=== PATIENT | male | born 1985 | race Hispanic/Latino ===

== ENCOUNTER 2024-02-23 18:04 | Observation (INO) | payer SELFPAY ==
--- NOTE | ~2024-02-23 | XR_ITS ---
EXAM: XR abdomen/kub 1V DATE: 02/23/2024 23:29 HISTORY: stone . COMPARISON: CT abdomen pelvis, same date. FINDINGS: Retained contrast in a mild-to moderately dilated right collecting system and within the u rinary bladder. Normal bowel gas pattern. No organomegaly. No abnormal abdominal calcification, howev er retained contrast obscures some radiologic detail including the known distal right ureteral stone. Regional bones and soft tissues normal for age. IMPRESSION: The distal right ureteral stone is obscured by contrast material. Mild-moderate right hyd ronephrosis. Reviewed, dictated and finalized at location K. IMPRESSION: The distal right ureteral stone is obscured by contrast material. M ild-moderate right hydronephrosis.
--- NOTE | ~2024-02-23 | XR_ITS ---
EXAMINATION: XR retrograde pyelo w/stent RT DATE: 02/24/2024 09:58 INDICATION: Right-sided retrograde pyelogram. TECHNIQUE: 3 fluoroscopic images of the pelvis and lower abdomen were obtained during procedure perfo rmed by Dr. Alarcon. Radiologist was not present for the imaging or procedure. The amount of fluoros copy time used during this procedure was 0.2 minutes. COMPARISON: 02/23/2024 FINDINGS: There is retrograde contrast opacification of the right ureter and renal collecting system. The stone previously seen at the right ureterovesicular junction is not identified and as either been extracte d or is obscured by the injected contrast. No evident urothelial irregularities or definitive filling defects appreciated. Final image demonstrates placement of a right internal ureteral stent with prox imal loop formed in the right renal pelvis. IMPRESSION: 1. Fluoroscopy utilized during retrograde pyelogram for prior obstructing UVJ stone which is not iden tified, possibly extracted. Correlate with procedure note for further detail. 2. Proximal loop of a right internal ureteral stent in expected position at the right renal pelvis. Reviewed, dictated and finalized at location A. IMPRESSION: 1. Fluoroscopy utilized during retrograde pyelogram for prior obstructing UVJ s tone which is not identified, possibly extracted. Correlate with procedure note for further detail. 2. Proximal loop of a right internal ureteral stent in expected position at the right renal pelvis.
--- NOTE | ~2024-02-23 | CT_ITS ---
EXAMINATION: CT abdomen pelvis w con DATE: 02/23/2024 20:48 INDICATION: abdominal pain TECHNIQUE: Computed tomography (CT) of the abdomen and pelvis was performed with 100 mL Omnipaque-350 intravenous contrast. Automated exposure control and iterative reconstruction technique were employe d. The dose-length product was 280.27 mGy-cm. COMPARISON: None. FINDINGS: Lower thorax: Unremarkable Liver: Normal. Biliary/Gallbladder: Gallbladder is normal. No bile duct dilation. Pancreas: No mass or duct dilation. Spleen: Normal. Adrenals:No mass. Kidneys: Delayed right nephrogram. Moderate perinephric stranding and hydronephrosis on the right. No rmal left kidney GI tract: No small or large bowel dilation. Normal appendix. Mesentery/Peritoneum: No ascites, mass, or free air. Retroperitoneum: No mass. Pelvis: 3 x 5 mm calcification at the entrance of the right UVJ. Normal urinary bladder.. Soft Tissues: Soft tissues and body wall unremarkable. Bones: No acute osseous finding. IMPRESSION: 3 x 5 mm kidney stone at the entrance of the right UVJ, causing moderate obstructive uropathy. Reviewed, dictated and finalized at location K. IMPRESSION: 3 x 5 mm kidney stone at the entrance of the right UVJ, causing moderate obstru ctive uropathy.
[2024-02-23 18:09] VITALS: BP 131/109; PULSE 65; RESP 18; TEMP 36.3; O2SAT 100
--- NOTE | 2024-02-23 18:11 | ED.ABDPAIN ---
HPI - Abdominal Pain General Chief Complaint: Abdominal Pain <Thalia Melissa APRN - Last Filed: 02/25/24 17:02> Stated Complaint: adb pain <Thalia Melissa APRN - Last Filed: 02/25/24 17:02> Time Seen by Provider: 02/23/24 18:11 <Thalia Melissa APRN - Last Filed: 02/25/24 17:02> Focused HPI: Pt is a 39-year-old male who presents to the ER with abdominal pain. He endorses abdominal pain in his RLQ that started an hour ago. Pt reports he had chicken & rice earlier today and the pain started about four hours later. GENERAL: Well-appearing, well-nourished, and in no acute distress. HEAD: Normocephalic, atraumatic. CHEST: Clear to auscultation. ?No respiratory distress. HEART: Regular rate and rhythm.? NEURO: ?Alert and oriented x3. ABDOMEN: Pt endorses significant pain in his RLQ. He has significant pain with palpation on his R and L lower quadrants. Pt is actively vomiting in triage. Patient screened in triage and initial orders placed.? ?Additional care and disposition to be based upon?diagnostic testing and treatment. 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 <Thalia Melissa APRN - Last Filed: 02/25/24 17:02> Mode of arrival: ambulatory <Thalia Melissa APRN - Last Filed: 02/25/24 17:02> Limitations: no limitations <Thalia Melissa APRN - Last Filed: 02/25/24 17:02> Related Data Allergies/Adverse Reactions: Allergies Allergy/AdvReac Type Severity Reaction Status Date / Time No Known Allergies Allergy Verified 02/24/24 08:37 <Thalia Melissa APRN - Last Filed: 02/25/24 17:02> Review of Systems Review of Systems: All systems reviewed & are unremarkable except as noted in HPI and below <Micaela Hernandez MD - Last Filed: 02/24/24 04:37> PMFSH Social History Social History: Social History Smoking status: Never smoker Do You Feel Safe in your Home?: Yes Lack of Transportation: No Lack of Food: Never True Current Housing: I Have Housing Concerned About Future Housing: No Difficulty Paying Gas/Electric Bills: No Difficulty Paying for Meds: No Currently Unemployed: No Education: High School Diploma/GED Difficulty w/ Childcare or Family Care: No Spiritual care concerns: No <Thalia Melissa APRN - Last Filed: 02/25/24 17:02> Exam Narrative: EXAMINATION OF ORGAN SYSTEMS/BODY AREAS: Constitutional: Vital signs per nursing GENERAL: Appears quite uncomfortable HEAD: Normal with no signs of head trauma. EYES: EOMI, conjunctiva normal ENT: Hearing grossly intact LUNGS: Nonlabored breathing. HEART: [Regular rate and rhythm] ABD: [Soft], some right CVA tenderness EXT: Normal range of motion SKIN: [No rashes or lesions.] NEURO: [Alert and oriented x 3. No gross focal sensory or strength deficits.] PSYCH: Normal affect <Micaela Hernandez MD - Last Filed: 02/24/24 04:37> Course Course Emergency Course: ED COURSE AND MEDICAL DECISION MAKING: [ ] presenting to the emergency department for acute flank pain, symptoms are concerning for likely renal colic versus pyelonephritis. Urinalysis is ordered. [Toradol 15mg, Zofran 4mg] are ordered. CT scan of the abdomen/pelvis is ordered. Labs are remarkable for: [ ]. CT scan of the abdomen/pelvis is reviewed by myself and interpreted by radiology: [ ]. On reevaluation, the patient still having some pain but appears more comfortable. Patient is strongly advised to return to the emergency department for any increasing pain not improving with medications, persistent nausea vomiting, fevers or chills or for any other concerns. Patient is comfortable with this plan and was discharged in fair condition. Procedures: Pulse oximetry interpretation - not hypoxic. Review of medical records. DISPOSITION: Discharged home in fair condition. IMPRESSION: Nephrolithiasis <Micaela
[2024-02-23] MEDS: ONDANSETRON INJ 4 MG/2 ML VIAL IV PUSH ×2 (18:17→23:00)
[2024-02-23 18:28] LABS: Basophils Absolute Auto 0.1 K/mm3 (0.0-0.1); Basophils Percent Auto 0.6 % (0.2-1.2); Eosinophils Absolute Auto 0.1 K/mm3 (0-0.3); Eosinophils Percent Auto 1.1 % (0-4.4); Hematocrit 44.4 % (42.0-52.0); Immature Granulocyte Absolute 0.03 K/mm3 (0.00-0.031); Immature Granulocyte Percent A 0.3 % (0-0.5); Lymphocytes Absolute Auto 1.61 K/mm3 (0.9-3.2); Lymphocytes Percent Auto 17.9 % (18.3-44.2); Mean Corpuscular HGB Conc 33.8 g/dl (32-36); Mean Corpuscular Hemoglobin 29.8 pg (26-34); Mean Corpuscular Volume 88.3 fl (80-100); Mean Platelet Volume 9.3 fl (7.4-10.4); Monocytes Absolute Auto 0.5 K/mm3 (0.1-0.6); Monocytes Percent Auto 5.6 % (2.6-8.5); Neutrophils Absolute Auto 6.7 K/mm3 (1.3-6.7); Neutrophils Percent Auto 74.5 % (45.5-73.1); Platelet Count Result 272 k/mm3 (150-375); Red Blood Count 5.03 M/mm3 (4.6-6.20); Red Cell Distribution Width 12.8 % (11.5-14.5)
[2024-02-23] MEDS: HYDROcodone/acetaminophen (*CRX) 5-325 MG TABLET 1 TAB PO (18:34)
[2024-02-23 18:44] LABS: Alanine Aminotransferase 24 U/L (6-50); Albumin Level 4.7 g/dL (3.5-5.1); Alkaline Phosphatase 91 U/L (38-126); Anion Gap 10 mmol/L (4-12); Aspartate Amino Transferase 33 U/L (17-59); Bilirubin,Total 0.5 mg/dL (0.2-1.3); Blood Urea Nitrogen 16 mg/dL (9-20); Calcium 9.3 mg/dL (8.4-10.2); Carbon Dioxide 29 mmol/L (22-30); Chloride 103 mmol/L (98-107); Estimated CRCL calculation 70 ml/min; Estimated Glomerular Filt Rate > 60; Glucose 118 mg/dL (65-110); Lipase 162 U/L (23-300); Potassium 3.7 mmol/L (3.4-5.0); Sodium 142 mmol/L (137-145)
[2024-02-23 20:54] LABS: Add Urine Microscopic? YES; Appearance Urine Turbid (Clear); Bacteria Urine None Seen /hpf; Bilirubin Urine Negative (Negative); Blood Urine Negative (Negative); Color Urine Yellow (Yellow); Glucose Urine UA Negative (Negative); Ketones Urine Negative (Negative); Leukocyte Esterase Ur Negative LEU/UL (Negative); Need Manual Microscopic Reviewed; Nitrate Urine Negative (Negative); Protein Urine Trace mg/dL (Negative); RBC Urine 0-2 /hpf (0-2); Specific Grav Ur 1.018 (1.001-1.035); Squamous Epithelial Cell Urine Occasional /hpf (Few); pH Urine 8.5 (5.0-9.0)
[2024-02-23 22:53] VITALS: BP 132/88; PULSE 66; RESP 18; O2SAT 100
[2024-02-23] MEDS: KETOROLAC 15 MG/ML VIAL (*BKC) IV PUSH (23:00)
[2024-02-24] VITALS (11 sets, daily range): BP systolic 95–133; BP diastolic 46–86; PULSE 50–70; RESP 12–18; TEMP 35.7–36.4; O2SAT 99–100; BMI 24.5
--- NOTE | 2024-02-24 00:32 | ADMGEN ---
This patient, Christopher Horne, was admitted to 3 [facility] Surg Room 312-01. Patient/family oriented to hospital policies and general routines including ID bracelet, bed and alarms, visiting hours, pain management, procedures, bathroom and other care routines, personal items, smoking policy, room service/diet, and visiting hours. Information on how to activate the Rapid Response Team has been discussed. Patient/Family are encouraged to report perceived risks to care and to ask questions if they do not understand what they are told or what they should do.
[2024-02-24] MEDS: KETOROLAC 30 MG/ML VIAL (*BKC) 15 MG IV PUSH ×2 (00:42→08:10)
--- NOTE | 2024-02-24 08:17 | PM.IMHP ---
H&P: HPI History of Present Illness Date/Time: 02/24/24 08:17 Chief Complaint: Obstructing 3 x 5 mm right UVJ calculus with renal colic Narrative: 39-year-old Tam[place]-speaking male who presented with right lower quadrant pain. Evaluation in the emergency room revealed a 3 x 5 mm right UVJ stone with hydronephrosis. He had persistent pain. His white count in urine was negative. He was admitted for pain control and definitive treatment as he is having pain control issues. Review of Systems Review of Systems: All systems reviewed & are unremarkable except as noted in HPI and below PMFSH Social History Social History Smoking status: Never smoker Do You Feel Safe in your Home?: Yes Lack of Transportation: No Lack of Food: Never True Current Housing: I Have Housing Concerned About Future Housing: No Difficulty Paying Gas/Electric Bills: No Difficulty Paying for Meds: No Currently Unemployed: No Education: High School Diploma/GED Difficulty w/ Childcare or Family Care: No Spiritual care concerns: No Meds Home Medications and Allergies Home Medications Medication Instructions Recorded Confirmed Type No Home Medications 02/24/24 02/24/24 History Allergies Allergy/AdvReac Type Severity Reaction Status Date / Time No Known Allergies Allergy Verified 02/23/24 22:59 Vital Signs Vital Signs - 24 hr 02/23/24 18:09 02/23/24 22:53 02/24/24 00:30 Temperature 36.3 C L 35.7 C L Pulse Rate 65 66 58 L Respiratory Rate 18 18 18 Blood Pressure 131/109 H 132/88 114/86 Pulse Oximetry 100 100 100 Oxygen Delivery Room Air Fraction of Inspired Oxygen 02/24/24 00:51 02/24/24 04:30 02/24/24 07:43 Temperature 36.3 C L Pulse Rate 59 L Respiratory Rate 16 Blood Pressure 133/73 Pulse Oximetry 100 100 Oxygen Delivery Room Air Room Air Fraction of Inspired Oxygen 21 Exam Const: General: cooperative Resp: Effort & Inspection: normal respiratory effort Cardio: Rate: regular rate Rhythm: regular rhythm GI: Inspection: normal to inspection H&P: Results Labs Labs: Short CBC 02/23/24 Range/Units 18:22 WBC 9.0 (4.5-10.0) K/mm3 Hgb 15.0 (14.0-18.0) g/dL Hct 44.4 (42.0-52.0) % Plt Count 272 (150-375) k/mm3 BMP 02/23/24 18:22 Sodium 142 Potassium 3.7 Chloride 103 Carbon Dioxide 29 BUN 16 Creatinine 1.20 Glucose 118 H Calcium 9.3 Liver Function 02/23/24 Range/Units 18:22 Total Bilirubin 0.5 (0.2-1.3) mg/dL AST 33 (17-59) U/L ALT 24 (6-50) U/L Alkaline Phosphatase 91 (38-126) U/L Albumin 4.7 (3.5-5.1) g/dL Urine 02/23/24 Range/Units 19:37 Urine Color Yellow (Yellow) Urine Appearance Turbid H (Clear) Urine pH 8.5 (5.0-9.0) Ur Specific [place] 1.018 (1.001-1.035) Urine Protein Trace (Negative) mg/dL Urine Glucose (UA) Negative (Negative) mg/dL Assessment and Plan Assessment and plan (1) Calculus of ureterovesical junction (UVJ): Code(s): N20.1 - Calculus of ureter Status: Acute Assessment and Plan: Calculus is at the right UVJ. Will proceed with cystoscopy, right retrograde pyelogram, right ureteroscopy with stone extraction, possible laser, stent placement.
--- NOTE | 2024-02-24 08:19 | WPDHPUPDATE1 ---
History and Physical Update Update Date/Time: 02/24/24 08:19 History and Physical has been reviewed, including an updated exam of the patient. There are NO changes in the patient's condition. Risks, benefits, and alternatives have been discussed and questions answered. Patient agrees to proceed with procedure.
--- NOTE | 2024-02-24 08:25 | WPDANESEPPF ---
Anes - Initial Pre Proc Eval Procedure: Operation Date: 02/24/24 13:45 Proposed Procedures p Cystoscopy, Right Ureteroscopy, Possible Right Retrograde Pyelogram, Stone Extraction, Possible Right Ureteral Stent Placement, Possible Holmium Laser Lithotripsy - Johnathan Alarcon MD Date/Time: 02/24/24 08:25 Surgeon: Johnathan Alarcon MD Pre Op Diagnosis: R UVJ Stone Patient Data Age: 39 Gender: M Height: 1.7 m Weight: 70.9 kg Last Vital Signs Temp 97.4 F L 02/24/24 04:30 Pulse 59 L 02/24/24 04:30 Resp 16 02/24/24 04:30 BP 133/73 02/24/24 04:30 Pulse Ox 100 02/24/24 07:43 O2 Del Method Room Air 02/24/24 07:43 FiO2 21 02/24/24 07:43 Allergies Allergy/AdvReac Type Severity Reaction Status Date / Time No Known Allergies Allergy Verified 02/23/24 22:59 Home Medications Medication Instructions Recorded Confirmed Type No Home Medications 02/24/24 02/24/24 History Laboratory Tests 02/23/24 02/23/24 18:22 19:37 WBC 9.0 K/mm3 (4.5-10.0) RBC 5.03 M/mm3 (4.6-6.20) Hgb 15.0 g/dL (14.0-18.0) Hct 44.4 % (42.0-52.0) MCV 88.3 fl (80-100) MCH 29.8 pg (26-34) MCHC 33.8 g/dl (32-36) RDW 12.8 % (11.5-14.5) Plt Count 272 k/mm3 (150-375) MPV 9.3 fl (7.4-10.4) Immature Gran % (Auto) 0.3 % (0-0.5) Neut % (Auto) 74.5 H % (45.5-73.1) Lymph % (Auto) 17.9 L % (18.3-44.2) [place] % (Auto) 5.6 % (2.6-8.5) Eos % (Auto) 1.1 % (0-4.4) Baso % (Auto) 0.6 % (0.2-1.2) Lymph # (Auto) 1.61 K/mm3 (0.9-3.2) [place] # (Auto) 0.5 K/mm3 (0.1-0.6) Eos # (Auto) 0.1 K/mm3 (0-0.3) Baso # (Auto) 0.1 K/mm3 (0.0-0.1) Abs Immat Gran (auto) 0.03 K/mm3 (0.00-0.031) Absolute Neuts (auto) 6.7 K/mm3 (1.3-6.7) Absolute Nucleated RBC 0.000 K/mm3 (0.0-0.012) Nucleated RBC % 0.0 % (0.0-0.2) Sodium 142 mmol/L (137-145) Potassium 3.7 mmol/L (3.4-5.0) Chloride 103 mmol/L (98-107) Carbon Dioxide 29 mmol/L (22-30) Anion Gap 10 mmol/L (4-12) BUN 16 mg/dL (9-20) Creatinine 1.20 mg/dL (0.7-1.3) Estim Creat Clear Calc 70 ml/min Estimated GFR > 60 (59 - ) Glucose 118 H mg/dL (65-110) Calcium 9.3 mg/dL (8.4-10.2) Magnesium 2.0 mg/dL (1.6-2.3) Total Bilirubin 0.5 mg/dL (0.2-1.3) AST 33 U/L (17-59) ALT 24 U/L (6-50) Alkaline Phosphatase 91 U/L (38-126) Total Protein 9.0 H g/dL (6.3-8.2) Albumin 4.7 g/dL (3.5-5.1) Lipase 162 U/L (23-300) Urine Color Yellow (Yellow) Urine Appearance Turbid H (Clear) Urine pH 8.5 (5.0-9.0) Ur Specific [place] 1.018 (1.001-1.035) Urine Protein Trace mg/dL (Negative) Urine Glucose (UA) Negative mg/dL (Negative) Urine Ketones Negative mg/dL (Negative) Ur Blood (Man) Negative (Negative) Urine Nitrate Negative (Negative) Urine Bilirubin Negative (Negative) Urine Urobilinogen 1.0 mg/dL (<2.0) Add Ur Microanalysis Reviewed Leukocyte Esterase Rfl Negative NORAH/UL (Negative) Urine RBC 0-2 /hpf (0-2) Urine WBC 11-20 H /hpf (0-3) Ur Squamous Epith Cells Occasional /hpf (Few) Urine Bacteria None seen /hpf Urine Casts 11-20 Patient hx anesthesia problems: none Family hx anesthesia problems: none Results Review: All pre-operative results and documents have been reviewed as part of the pre-operative evaluation. [facility] Social History Social History Smoking status: Never smoker Do You Feel Safe in your Home?: Yes Lack of Transportation: No Lack of Food: Never True Current Housing: I Have Housing Con
[2024-02-24] MEDS: LACTATED RINGERS 1,000 ML 30 ML IV CONT (08:36)
[2024-02-24] MEDS: ceFAZolin 2 GM/D5W 50 ML 2 GM/50 ML BAG IVPB (09:24)
[2024-02-24] MEDS: LIDOCAINE HCL 2% GEL UROJET 10 ML PKG MUCOUS MEM (09:44)
--- NOTE | 2024-02-24 09:57 | W.PM.PROC2 ---
Procedure Note - Detailed Date of Procedure 02/24/24 Pre-op Diagnosis R UVJ Stone Post-op Diagnosis Same (Meatal narrowing) Procedure Performed Urethral dilation, cystoscopy, right retrograde pyelogram, right ureteroscopy with stone extraction, right ureteral stent placement Surgeon Johnathan Alarcon MD Anesthesia General Description of Procedure Patient was taken the operative suite correctly identified. Once anesthesia was obtained was placed in dorsal lithotomy position and prepped and draped usual sterile fashion. The meatus was somewhat tight and thus was dilated up to 22 [place]. Nineteen [place] scope was inserted the bladder direct vision. There were no other strictures noted. Prostate nonobstructive. The bladder without any evidence of tumors. Right ureteral orifice was cannulated with a guidewire. I dilated the orifice with an 8/10 dilator. Rigid ureteral scope was then inserted in. The stone was visualized. Using escape basket was retrieved in 1 piece. This is sent for analysis. Pyelogram was then performed to confirm placement of the stent. 4.8 [place] contour stent was then placed with the proximal end coiled in the renal pelvis and the distal end in the bladder. Bladder was drained. 2% viscous inserted urethra patient is taken recovery stable condition. He will follow-up in a week's time for stent removal. This completes dictation. Please send a copy of op note to my office Estimated Blood Loss 0 Drains Yes Packing No Pathology Yes Complications No immediate complications Condition Stable Disposition PACU
--- NOTE | 2024-02-24 12:43 | PM.DS ---
DS: Admitting Diagnosis Discharge Date 02/24/2024 Admitting Diagnosis Right UVJ stone DS: Discharge Diagnosis Discharge Diagnosis (1) Calculus of ureterovesical junction (UVJ): Code(s): N20.1 - Calculus of ureter Status: Acute DS: Summary Hospital Course Hospital Course: Date of admission: 02/23/2024 Date of discharge: 02/24/2024 Christopher Horne 39-year-old healthy male who presented to the emergency department on 02/23/2024 with complaints of right flank and lower quadrant pain. He was found to have a 3 x 5 mm right UVJ stone causing moderate hydronephrosis. His white blood cell count, creatinine, and UA were within normal limits. He was having issues with pain control, therefore was admitted for urologic evaluation. He underwent urethral dilation, cystoscopy, right retrograde pyelogram, right ureteroscopy with stone extraction, and right ureteral stent placement today. He tolerated the procedure well. Postoperatively, his pain was well controlled. He was voiding without difficulty. He was tolerating his diet. He had no nausea, vomiting, fever, or chills. He will be discharged with course of Bactrim, analgesics, antispasmodics for stent discomfort. He will follow-up with Dr. Alarcon in 1 week for stent removal. Discussed at length temporary nature of stent and imperative need for outpatient follow-up. All questions answered. He felt comfortable with plans for discharge home. Communication occurred with the assistance of a a video sales representative printing paper as patient speaks Welsh only. Status at Discharge Overall status at discharge: patient is back to baseline Time Spent with Patient Time attestation: Total time spent providing and/or coordinating discharge services: 40 minute Time spent: Greater than 30 minutes Exam Narrative: General: Awake, alert, comfortable, no acute distress HEENT: Normocephalic, atraumatic, sclerae anicteric Respiratory: Normal respiratory effort, no accessory muscle use Abdomen: Nondistended, soft, nontender Skin: Normal coloration, warm and dry Neurologic: No focal neuro deficits noted Psychiatric: Appropriate mood and affect, judgment and insight intact DS: Data Data Completed and Pending Pending studies at discharge: Pending at discharge 02/24/24 09:49 Surgical [PTH] Routine Labs on day of discharge: Labs from last 24 hours 02/23/24 02/23/24 19:37 18:22 WBC 9.0 RBC 5.03 Hgb 15.0 Hct 44.4 MCV 88.3 MCH 29.8 MCHC 33.8 RDW 12.8 Plt Count 272 MPV 9.3 Immature Gran % (Auto) 0.3 Neut % (Auto) 74.5 H Lymph % (Auto) 17.9 L [place] % (Auto) 5.6 Eos % (Auto) 1.1 Baso % (Auto) 0.6 Lymph # (Auto) 1.61 [place] # (Auto) 0.5 Eos # (Auto) 0.1 Baso # (Auto) 0.1 Abs Immat Gran (auto) 0.03 Absolute Neuts (auto) 6.7 Absolute Nucleated RBC 0.000 Nucleated RBC % 0.0 Sodium 142 Potassium 3.7 Chloride 103 Carbon Dioxide 29 Anion Gap 10 BUN 16 Creatinine 1.20 Estim Creat Clear Calc 70 Estimated GFR > 60 Glucose 118 H Calcium 9.3 Magnesium 2.0 Total Bilirubin 0.5 AST 33 ALT 24 Alkaline Phosphatase 91 Total Protein 9.0 H Albumin 4.7 Lipase 162 Urine Color Yellow Urine Appearance Turbid H Urine pH 8.5 Ur Specific [place] 1.018 Urine Protein Trace Urine Glucose (UA) Negative Urine Ketones Negative Ur Blood (Man) Negative Urine Nitrate Negative Urine Bilirubin Negative Urine Urobilinogen 1.0 Add Ur Microanalysis Reviewed Leukocyte Esterase Rfl Negative Urine RBC 0-2 Urine WBC 11-20 H Ur Squamous Epith Cells Occasional Urine Bacteria None seen Urine Casts 11-20 Discharge Plan Discharge Attending physician on discharge: Johnathan Alarcon Discharging Clinician: Lyssa Bingham Patient Disposition: Home, Self-Care Activity: as tolerated Diet: regular Discharge Instructions: Begin taking Bactrim 2 times p
--- NOTE | 2024-02-25 19:20 | PC.NURSE ---
[facility] pharmacy called for Tramadol clarification. Dr Jean called. Returned call to [facility].
== END 2024-02-24 14:12 | disposition home or self-care (01) ==
LOC: ANHED 23:18 → ANH3MEDSUR 02-24 00:03
PROVIDERS: Registered Nurse; Admitting Provider Urology; Emergency Provider Emergency Medicine; Visit Provider Urology
PROC: (CPT 52352; principal; 2024-02-24 13:45)
DX: N20.1 Calculus of ureter (principal); N23 Unspecified renal colic
CPT/HCPCS: 52332; 36415; 74018; 74177; 74420; 80053; 81001; 82365; 83690; 83735; 85025; 87086; 88300; 96374; 96375; 96376; 99285; A9270; C1769; C2617; G0378; J0690; J1885; J2250; J2405; J2704; J3010; J7120; Q9966; Q9967

== ENCOUNTER 2024-03-20 17:45 | Emergency (ER) | payer SELFPAY ==
--- NOTE | ~2024-03-20 | CT_ITS ---
CT of the Abdomen and Pelvis: Indication: Abdominal pain Technique: 2.5 mm axial scans were obtained through the abdomen and pelvis following intravenous adm inistration of 100 cc of Omnipaque 350. Dose reduction technique was used on this scan by utilizing a utomated exposure control and iterative reconstruction technique. The dose-length product (DLP) was 3 31.86 mGy-cm. COMPARISON: 02/23/2024 Findings: Scans through the lung bases are unremarkable. The liver, spleen, pancreas, gallbladder, adrenals and left kidney are within normal limits. Right ur eteral stent in place. No significant abnormality of the right kidney seen otherwise. No evidence of aortic aneurysm. No lymphadenopathy. No bowel obstruction or bowel wall thickening. There is no evidence to suggest acute appendicitis. Images through the pelvis were performed. Urinary bladder otherwise unremarkable. Prostate gland mild ly enlarged. No ascites. Impression: Right ureteral stent in place. No other significant findings. No stones seen. Reviewed, dictated and finalized at [facility]. Impression: Right ureteral stent in place. No other significant findings. No stones seen.
[2024-03-20 17:50] VITALS: BP 125/73; PULSE 69; RESP 20; TEMP 36.3; O2SAT 99
[2024-03-20 19:44] VITALS: BP 117/81; PULSE 57; RESP 15; O2SAT 100
[2024-03-20 19:45] VITALS: BP 118/76; PULSE 58; RESP 16; O2SAT 99
[2024-03-20 20:01] VITALS: BP 119/75; PULSE 58; RESP 19; O2SAT 99
[2024-03-20 20:24] LABS: Add Urine Microscopic? YES; Appearance Urine Clear (Clear); Bacteria Urine None Seen /hpf; Bilirubin Urine Negative (Negative); Blood Urine 3+ (Negative); Color Urine Yellow (Yellow); Glucose Urine UA Negative (Negative); Ketones Urine Negative (Negative); Leukocyte Esterase Ur 1+ LEU/UL (Negative); Nitrate Urine Negative (Negative); Protein Urine 2+ mg/dL (Negative); RBC Urine >100 /hpf (0-2); Specific Grav Ur 1.019 (1.001-1.035); Squamous Epithelial Cell Urine None Seen /hpf (Few)
[2024-03-20 20:32] LABS: Basophils Percent Auto 0.5 % (0.2-1.2); Eosinophils Absolute Auto 0.2 K/mm3 (0-0.3); Eosinophils Percent Auto 3.7 % (0-4.4); Hematocrit 39.2 % (42.0-52.0); Hemoglobin 13.4 g/dL (14.0-18.0); Immature Granulocyte Absolute 0.02 K/mm3 (0.00-0.031); Immature Granulocyte Percent A 0.3 % (0-0.5); Lymphocytes Absolute Auto 2.02 K/mm3 (0.9-3.2); Lymphocytes Percent Auto 32.8 % (18.3-44.2); Mean Corpuscular HGB Conc 34.2 g/dl (32-36); Mean Corpuscular Hemoglobin 30.2 pg (26-34); Mean Corpuscular Volume 88.3 fl (80-100); Monocytes Absolute Auto 0.4 K/mm3 (0.1-0.6); Neutrophils Absolute Auto 3.4 K/mm3 (1.3-6.7); Neutrophils Percent Auto 55.7 % (45.5-73.1); Platelet Count Result 270 k/mm3 (150-375); Red Blood Count 4.44 M/mm3 (4.6-6.20); Red Cell Distribution Width 12.3 % (11.5-14.5); White Blood Count 6.2 K/mm3 (4.5-10.0)
[2024-03-20 20:43] LABS: Alanine Aminotransferase 17 U/L (6-50); Albumin Level 4.2 g/dL (3.5-5.1); Alkaline Phosphatase 91 U/L (38-126); Anion Gap 10 mmol/L (4-12); Aspartate Amino Transferase 28 U/L (17-59); Bilirubin,Total 0.3 mg/dL (0.2-1.3); Blood Urea Nitrogen 24 mg/dL (9-20); Calcium 9.3 mg/dL (8.4-10.2); Carbon Dioxide 27 mmol/L (22-30); Chloride 102 mmol/L (98-107); Estimated Glomerular Filt Rate > 60; Glucose 89 mg/dL (65-110); Lipase 197 U/L (23-300); Potassium 3.9 mmol/L (3.4-5.0); Sodium 139 mmol/L (137-145)
--- NOTE | 2024-03-20 21:05 | ED.ABDPAIN ---
HPI - Abdominal Pain General Chief Complaint: Abdominal Pain Stated Complaint: pelvic pain Time Seen by Provider: 03/20/24 19:47 History of Present Illness HPI narrative: 39-year-old male presenting with abdominal pain. Patient is [place]ian speaking, history and physical obtained via video referral specialist. States that he had a right-sided kidney stone last month and he had a stent placed several weeks ago. He was doing well until the last 3 days he has developed lower abdominal pain that is especially in the suprapubic and left lower quadrant. States that he has felt feverish and has had dysuria and worsening hematuria as well. Complains of constipation. No nausea or vomiting. No further complaints. States that he thinks he was supposed to follow-up with his urologist but he was unable to. Related Data Allergies Allergy/AdvReac Type Severity Reaction Status Date / Time No Known Allergies Allergy Verified 03/20/24 17:54 Review of Systems Review of Systems: All systems reviewed & are unremarkable except as noted in HPI and below PMFSH Social History Social History Smoking status: Never smoker Do You Feel Safe in your Home?: Yes Lack of Transportation: No Lack of Food: Never True Current Housing: I Have Housing Concerned About Future Housing: No Difficulty Paying Gas/Electric Bills: No Difficulty Paying for Meds: No Currently Unemployed: No Education: High School Diploma/GED Difficulty w/ Childcare or Family Care: No Spiritual care concerns: No Exam Narrative: GENERAL: Well-appearing, In no acute distress, pleasant cooperative HEAD: Normocephalic, atraumatic. EYES: PERRLA and EOMI. ENT: Mucous membranes moist. NECK: Supple. CHEST: Clear to auscultation. No respiratory distress. HEART: Regular rate and rhythm. ABDOMEN: Soft, tender in bilateral lower quadrants and suprapubic region, no guarding or rebound; mild R CVA tenderness EXTREMITIES: Normal range of motion. SKIN: Warm, dry, no rash. NEURO: No focal deficits. Alert and oriented x3. PSYCH: Normal mood and affect. Course Vital Signs Vital signs: Vital Signs Temperature 97.3 F L 03/20/24 17:50 Pulse Rate 69 03/20/24 17:50 Respiratory Rate 20 03/20/24 17:50 Blood Pressure 125/73 03/20/24 17:50 Pulse Oximetry 99 03/20/24 17:50 Oxygen Delivery Room Air 03/20/24 17:50 Temperature 98.4 F 03/20/24 22:41 Pulse Rate 59 L 03/21/24 02:43 Respiratory Rate 15 03/21/24 02:43 Blood Pressure 134/82 03/21/24 02:43 Pulse Oximetry 100 03/21/24 02:43 Oxygen Delivery Room Air 03/20/24 17:50 MDM - Abdominal Pain MDM Narrative Medical decision making narrative: 39-year-old male presenting with abdominal pain in the setting of recent right-sided ureteral stent. Vitals are within normal limits. Exam is remarkable for the above. Blood work without acute abnormalities. No leukocytosis. UA with greater than 100 RBCs, 11-20 wbc's, no bacteria, no nitrates are noted. Suspect these abnormalities are related to the stent that remains in place but will restart him on bactrim as his stent remains in place. CT abdomen pelvis shows that the right-sided ureteral stent remains in place. There are no other abnormalities noted. Per chart review, patient was advised to follow-up with urology 1 week after the stent was placed. He states that he had issues with some paperwork so he was unable to do this. Will restart him on Bactrim and discussed extensively with him that he has to follow up with Urology to have the stent removed. He voices understanding of this plan. Appropriate return precautions given. Discharged in stable condition. Differential Diagnosis Differential diagnosis: Likely abdominal pain, acute appendicitis, calculus of kidney and other Medical Records Attestation: I reviewed the patient's medical records. Lab Data Attestation: I reviewed th
[2024-03-20 22:41] VITALS: BP 115/71; PULSE 56; RESP 15; TEMP 36.9; O2SAT 100
[2024-03-21 02:43] VITALS: BP 134/82; PULSE 59; RESP 15; O2SAT 100
== END 2024-03-21 02:43 | disposition home or self-care (01) ==
PROVIDERS: Emergency Provider Emergency Medicine
DX: R82.998 Other abnormal findings in urine (principal); Z96.0 Presence of urogenital implants
CPT/HCPCS: 36415; 74177; 80053; 81001; 83690; 85025; 87086; 99284; Q9967